=== PATIENT | female | born 1945 | race Caucasian/White ===

== ENCOUNTER 2018-06-03 11:37 | Emergency (ER) | payer OTHER, MEDICARE ==
[2018-06-03 11:51] VITALS: TEMP 98.6; BMI 28.0
--- NOTE | 2018-06-03 12:47 | PDOC ---
History of Present Illness - General Chief Complaint: Muscle Cramping Stated Complaint: ABDOMINAL PAIN Time Seen by Provider: 06/03/18 12:26 History Source: Patient - History of Present Illness Occurred: reports: other Lower Extremity Pain Location: bilateral: other (LE) Past History - Past Medical History Allergies/Adverse Reactions: Allergies Allergy/AdvReac Type Severity Reaction Status Date / Time No Known Allergies Allergy Verified 06/03/18 11:51 Home Medications: Ambulatory Orders Bimatoprost [Lumigan] 1 drop OU HS 06/22/14 Fluoxetine HCl [Prozac] 20 mg PO DAILY 06/22/14 Hctz 25Mg/Triamterene [Dyazide 25/37.5 -] 1 cap PO DAILY 06/22/14 Meclizine HCl [Antivert -] 25 mg PO TID PRN #21 tablet 06/22/14 Mag Hydrox/Al Hydrox/Simeth [Mylanta *Suspension*] 30 ml PO Q6H PRN 06/03/18 Naproxen 500 mg PO BID #20 tablet 06/03/18 Pantoprazole Sodium [Protonix -] 40 mg PO DAILY 06/03/18 Cancer: Yes (ENDOMETRIAL) COPD: No HTN: Yes Hypercholesterolemia: Yes Psychiatric Problems: Yes (anxiety) Other medical history: low potassium - Suicide/Smoking/Psychosocial Hx Smoking History: Never smoked Have you smoked in the past 12 months: No Hx Alcohol Use: No Drug/Substance Use Hx: No Substance Use Type: None Review of Systems - Review of Systems Constitutional: No: Chills, Fever Respiratory: No: Shortness of Breath Cardiac (ROS): No: Chest Pain, Lightheadedness, Palpitations *Physical Exam - Vital Signs Last Vital Signs Temp Pulse Resp BP Pulse Ox 98.6 F 71 18 131/69 100 06/03/18 11:48 06/03/18 11:48 06/03/18 11:48 06/03/18 11:48 06/03/18 11:48 - Physical Exam General Appearance: Yes: Appropriately Dressed. No: Apparent Distress HEENT: positive: Normal Voice Neck: positive: Supple Respiratory/Chest: negative: Respiratory Distress Cardiovascular: positive: Regular Rate, S1, S2 Extremity: positive: Normal Inspection, Tender, Other (pedal pulses intact b/ll , no skin changes or varicosities). negative: Pedal Edema, Swelling, Calf Tenderness Integumentary: positive: Dry, Warm Neurologic: positive: Fully Oriented, Alert, Normal Mood/Affect ED Treatment Course - LABORATORY CBC & Chemistry Diagram: 06/03/18 12:51 06/03/18 12:51 Medical Decision Making - Medical Decision Making 06/03/18 12:42 72-year-old female, history of hypertension, hyperlipidemia, gallstone, gastric ulcer, here with bilateral lower extremity pain. Patient states she developed severe cramping pain that starts in her feet and radiates all the way up to her groin, kept her from sleeping last night. Has not taken anything for pain. Has had similar pain in the past but was not this severe. No obvious inciting factors and no risk factors for DVT, PE. Denies SOB, CP or palpitations. Pt states she is concerned her potassium is low, as was told her potassium was low several weeks ago after coming to ED with epigastric pain. Of note, potassium was 3.2 then. No known history of kidney disease per patient See exam B/l LE cramping No trauma Exam unremarkable -labs check electrolytes -pain control in ED 06/03/18 13:27 Potassium 3.3 on labs. Doubt such a mild increase in potassium would cause such severe cramps, however dose of 40 mg potassium given along with IV Tylenol and fluids. Will reassess 06/03/18 15:37 Rest of labs wnl, US neg for b/l DVT. On reassessment, patient states pain is mostly in her right groin at this time. States pain worse with movement of right hip. Denies any recent injury. No tenderness, swelling, or evidence of hernia on exam. Patient able to bear weight. Pain in right groin possibly arthritis. No indication for x-ray or any other imaging at this time. Will give dose of toradol and anticipate discharging with pain control and having patient follow up with her PMD this week *DC/Admit/Observation/Transfer Diagnosis at time of Disposition: Leg cramps - Discharge Dispostion Disposition: HOME Condition at time of disposition: Improved - Prescriptions Prescriptions: Naproxen 500 mg PO BID #20 tablet - Referrals Referrals: David Kelley MD [Primary Care Provider] - - Patient Instructions Printed Discharge Instructions: DI for Leg Pain Additional Instructions: The cause of your leg pain is unclear at this time. Your potassium was 3.3, mildly decreased from normal, which is 3.5. You were given dose of potassium here Take medications as prescribed for pain and follow-up with your PMD this week - Post Discharge Activity
[2018-06-03] MEDS ORDERED: ACETAMINOPHEN 1000 MG/100 ML VIAL (NON FORMULARY) IVPB ONE (12:48)
[2018-06-03] MEDS ORDERED: SODIUM CHLORIDE 1,000 ML IV STA (12:48)
--- NOTE | 2018-06-03 12:50 | PDOC ---
*Physical Exam - Vital Signs Last Vital Signs Temp Pulse Resp BP Pulse Ox 98.6 F 71 18 131/69 100 06/03/18 11:48 06/03/18 11:48 06/03/18 11:48 06/03/18 11:48 06/03/18 11:48 Medical Decision Making - Medical Decision Making 06/03/18 12:48 Vital Signs Temp Pulse Resp BP Pulse Ox 98.6 F 71 18 131/69 100 06/03/18 11:48 06/03/18 11:48 06/03/18 11:48 06/03/18 11:48 06/03/18 11:48 Case discussed with the physician medical record assistant, CIRA Leiva. I agree with the plan. *DC/Admit/Observation/Transfer - Referrals Referrals: David Kelley MD [Primary Care Provider] - - Patient Instructions - Post Discharge Activity
[2018-06-03 13:01] LABS: BASO % 0.9 % (0-2.0); EOS % 3.2 % (0-4.5); HEMATOCRIT 39.1 % (32.4-45.2); HEMOGLOBIN 13.2 GM/dL (10.7-15.3); LYMPH % 23.5 % (8-40); MCH 29.5 pg (25.7-33.7); MCHC 33.7 g/dl (32.0-36.0); MEAN CELL VOLUME 87.4 fl (80-96); MEAN PLT VOLUME 7.6 fl (7.5-11.1); MONO % 8.3 % (3.8-10.2); NEUT % 64.1 % (42.8-82.8); PLATELET COUNT 227 K/MM3 (134-434); RBC 4.47 M/mm3 (3.60-5.2); RDW 12.3 % (11.6-15.6); WHITE BLOOD COUNT 6.2 K/mm3 (4.0-10.0)
[2018-06-03] MEDS ORDERED: ACETAMINOPHEN INJECTION 100 ML IVPB ONE (13:18)
[2018-06-03 13:26] LABS: ALBUMIN 3.8 g/dl (3.4-5.0); ALK PHOS 72 U/L (45-117); ANION GAP 9 MMOL/L (8-16); BILIRUBIN,TOTAL 0.4 mg/dL (0.2-1); BLOOD UREA NITROGEN 23 mg/dL (7-18); CALCIUM 9.2 mg/dL (8.5-10.1); CHLORIDE 102 mmol/L (98-107); CO2 28 mmol/L (21-32); CREATININE 0.8 mg/dL (0.55-1.3); GLUCOSE,RANDOM 89 mg/dL (74-106); MAGNESIUM 1.8 mg/dL (1.8-2.4); POTASSIUM 3.3 mmol/L (3.5-5.1); SGOT/AST 32 U/L (15-37); SGPT/ALT 28 U/L (13-61); SODIUM 139 mmol/L (136-145); TOT PROT 7.4 g/dl (6.4-8.2)
[2018-06-03] MEDS ORDERED: POTASSIUM CHLORIDE TABS 20 MEQ TABLET.ER (FP) PO ONE ×2 (13:27→13:33)
[2018-06-03 15:19] LABS: URINE APPEARANCE CLEAR; URINE BILIRUBIN NEGATIVE (<2.0 mg/dL); URINE COLOR STRAW; URINE GLUCOSE (UA) NEGATIVE (NEGATIVE); URINE KETONE NEGATIVE (NEGATIVE); URINE LEUK ESTERASE NEGATIVE (NEGATIVE); URINE NITRITE NEGATIVE (NEGATIVE); URINE PROTEIN NEGATIVE (NEGATIVE); URINE UROBILINOGEN NEGATIVE mg/dL (0.2-1.0)
[2018-06-03 15:22] LABS: EPI CELLS RARE /HPF (FEW)
[2018-06-03] MEDS ORDERED: KETOROLAC TROMETHAMINE 30 MG/1 ML VIAL IVPUSH ONE (15:36)
[2018-06-03] MEDS ORDERED: KETOROLAC TROMETHAMINE 30 MG/1 ML VIAL ONE (15:46)
[2018-06-03 16:15] VITALS: BP 111/54; PULSE 54
== END 2018-06-03 16:15 | disposition home or self-care (01) ==
LOC: JER 11:37
PROC: 3E033NZ Introduction of Analgesics, Hypnotics, Sedatives into Peripheral Vein, Percutaneous Approach (ICD-10-PCS; principal; 2018-06-03)
PROC: 3E0333Z Introduction of Anti-inflammatory into Peripheral Vein, Percutaneous Approach (ICD-10-PCS; 2018-06-03)
DX: R25.2 Cramp and spasm (principal); E87.6 Hypokalemia; I10 Essential (primary) hypertension; Z87.19 Personal history of other diseases of the digestive system; Z85.89 Personal history of malignant neoplasm of other organs and systems
CPT/HCPCS: 36415; 80053; 81003; 81015; 83735; 85025; 93970-TC; 96374; 96375; 99282-25; J0131; J7030

== ENCOUNTER 2018-06-27 16:43 | Emergency (ER) | payer OTHER, MEDICARE ==
[2018-06-27 16:51] VITALS: BP 139/73; TEMP 97.7; BMI 28.0
--- NOTE | 2018-06-27 16:54 | PDOC ---
Rapid Medical Evaluation Chief Complaint: Chest Pain Time Seen by Provider: 06/27/18 16:52 Medical Evaluation: Allergies Allergy/AdvReac Type Severity Reaction Status Date / Time No Known Allergies Allergy Verified 06/03/18 11:51 Vital Signs Temp Pulse Resp BP Pulse Ox 97.7 F 65 16 139/73 97 06/27/18 16:47 06/27/18 16:47 06/27/18 16:47 06/27/18 16:47 06/27/18 16:47 06/27/18 16:53 I have performed a brief in-person evaluation of this patient. The patient presents with a chief complaint of: epigastric pain since awaking Pertinent physical exam findings: Lungs CTAB. RRR. No m/r/g. I have ordered the following: labs, urine, CXR, EKG The patient will proceed to the ED for further evaluation. Discharge Disposition - Diagnosis Epigastric pain - Referrals - Patient Instructions - Post Discharge Activity
[2018-06-27 17:53] VITALS: PULSE 62
[2018-06-27 17:56] LABS: BASO % 0.3 % (0-2.0); EOS % 0.5 % (0-4.5); HEMATOCRIT 40.9 % (32.4-45.2); HEMOGLOBIN 13.7 GM/dL (10.7-15.3); LYMPH % 12.9 % (8-40); MCH 29.2 pg (25.7-33.7); MCHC 33.4 g/dl (32.0-36.0); MEAN CELL VOLUME 87.4 fl (80-96); MEAN PLT VOLUME 8.1 fl (7.5-11.1); MONO % 6.3 % (3.8-10.2); PLATELET COUNT 259 K/MM3 (134-434); RBC 4.68 M/mm3 (3.60-5.2); RDW 12.7 % (11.6-15.6); WHITE BLOOD COUNT 9.1 K/mm3 (4.0-10.0)
--- NOTE | 2018-06-27 18:04 | PDOC ---
History of Present Illness - General Chief Complaint: Chest Pain Stated Complaint: CHEST PAIN, ABD PAIN Time Seen by Provider: 06/27/18 16:52 - History of Present Illness Initial Comments: 06/27/18 18:03 Ms. Sevilla is a 72 yo female w/ pmh of HTN, HLD, gallstones, gastric ulcer, rheumatoid arthritis with recent flare for which she started prednisone yesterday (5mg) and recent elevated ESR at outside hospital who presents for 1 day history of upper abdominal pain. Patient called her assistant principal who recommended she take zantac and pepcid. Patient did this however decided to present to ER when pain did not go away. She currently feels nauseated at this time. The patient denies chest pain, shortness of breath, headache and dizziness. Denies fever, chills, vomit, diarrhea and constipation. Denies dysuria, frequency, urgency and hematuria. Allergies: NKDA Past History - Past Medical History Allergies/Adverse Reactions: Allergies Allergy/AdvReac Type Severity Reaction Status Date / Time No Known Allergies Allergy Verified 06/03/18 11:51 Home Medications: Ambulatory Orders Bimatoprost [Lumigan] 1 drop OU HS 06/22/14 Fluoxetine HCl [Prozac] 20 mg PO DAILY 06/22/14 Hctz 25Mg/Triamterene [Dyazide 25/37.5 -] 1 cap PO DAILY 06/22/14 Meclizine HCl [Antivert -] 25 mg PO TID PRN #21 tablet 06/22/14 Mag Hydrox/Al Hydrox/Simeth [Mylanta *Suspension*] 30 ml PO Q6H PRN 06/03/18 Naproxen 500 mg PO BID #20 tablet 06/03/18 Pantoprazole Sodium [Protonix -] 40 mg PO DAILY 06/03/18 Cancer: Yes (ENDOMETRIAL) COPD: No CHF: No GI Disorders: Yes (GB stones, ulcer) HTN: Yes Hypercholesterolemia: Yes Psychiatric Problems: Yes (anxiety) Other medical history: ARTHRITIS, GASTRIC ULCER - Immunization History Immunization Up to Date: No - Suicide/Smoking/Psychosocial Hx Smoking History: Never smoked Have you smoked in the past 12 months: No Information on smoking cessation initiated: No Hx Alcohol Use: No Drug/Substance Use Hx: No Substance Use Type: None Review of Systems - Review of Systems Comments:: 06/27/18 18:38 GENERAL/CONSTITUTIONAL: No fever or chills. No weakness. HEAD, EYES, EARS, NOSE AND THROAT: No change in vision. No ear pain or discharge. No sore throat. CARDIOVASCULAR: No chest pain or shortness of breath RESPIRATORY: No cough, wheezing, or hemoptysis. GASTROINTESTINAL: +Nausea w/ midline adbominal pain; constant. No vomiting, diarrhea or constipation. GENITOURINARY: No dysuria, frequency, or change in urination. MUSCULOSKELETAL: No joint or muscle swelling or pain. No neck or back pain. SKIN: No rash NEUROLOGIC: No headache, vertigo, loss of consciousness, or change in strength/ sensation. ENDOCRINE: No increased thirst. No abnormal weight change HEMATOLOGIC/LYMPHATIC: No anemia, easy bleeding, or history of blood clots. ALLERGIC/IMMUNOLOGIC: No hives or skin allergy. *Physical Exam - Vital Signs Last Vital Signs Temp Pulse Resp BP Pulse Ox 97.7 F 62 16 139/73 95 06/27/18 16:47 06/27/18 17:52 06/27/18 16:47 06/27/18 16:47 06/27/18 17:52 - Physical Exam Comments: 06/27/18 18:38 GENERAL: Awake, alert, and fully oriented, in no acute distress HEAD: No signs of trauma, normocephalic, atraumatic EYES: PERRLA, EOMI, sclera anicteric, conjunctiva clear ENT: Auricles normal inspection, hearing grossly normal, nares patent, oropharynx clear without exudates. Moist mucosa NECK: Normal ROM, supple, no lymphadenopathy, JVD, or masses LUNGS: No distress, speaks full sentences, clear to auscultation bilaterally HEART: Regular rate and rhythm, normal S1 and S2, no murmurs, rubs or gallops, peripheral pulses normal and equal bilaterally. ABDOMEN: +Midline epigastric TTP. Soft, normoactive bowel sounds. No guarding, no rebound. No masses EXTREMITIES: Normal inspection, Normal range of motion, no edema. No clubbing or cyanosis. NEUROLOGICAL: Cranial nerves II through XII grossly intact. Normal speech, normal gait, no focal sensorimotor deficits SKIN: Warm, Dry, normal turgor, no rashes or lesions noted. ED Treatment Course - LABORATORY CBC & Chemistry Diagram: 06/27/18 17:41 06/27/18 17:41 - ADDITIONAL ORDERS Additional order review: 06/27/18 17:41 RBC 4.68 MCV 87.4 MCHC 33.4 RDW 12.7 MPV 8.1 Neutrophils % 80.0 D Lymphocytes % 12.9 D Monocytes % 6.3 Eosinophils % 0.5 D Basophils % 0.3 Medical Decision Making - Medical Decision Making 06/27/18 18:39 Ms. Sevilla is a 72 yo female w/ pmh as described who presents for evaluation of epigastric pain consistent w/ patient's gastric ulcer pain. Labs drawn for evaluation with EKG / XR for r/o cardiac process or gastric rupture. GI cocktail given. Patient currently pending workup. 06/27/18 19:10 Patient signed out to Dr. Lemon for further evaluation. *DC/Admit/Observation/Transfer Diagnosis at time of Disposition: Epigastric pain - Referrals - Patient Instructions - Post Discharge Activity
--- NOTE | 2018-06-27 18:32 | PDOC ---
Attending Attestation - HPI HPI: 06/27/18 18:34 The patient is a 72 year old female, with a significant past medical history of HTN, HLD, gallstones, gastric ulcer, rheumatoid arthritis who presents to the emergency department for 1 day of upper abdominal pain for which she reportedly took zantac and protonix today. The patient denies chest pain, shortness of breath, headache and dizziness. The patient denies fever, chills, nausea, vomit, diarrhea and constipation. The patient denies dysuria, frequency, urgency and hematuria. Allergies: NKDA - Physicial Exam PE: 06/27/18 18:34 Constitutional: Awake, alert, oriented. No acute distress. Head: Normocephalic. Atraumatic Eyes: PERRL. EOMI. Conjunctivae are not pale. ENT: Mucous membranes are moist and intact. Posterior pharynx without exudates or erythema. Uvula midline. Neck: Supple. Full ROM. No lymphadenopathy. Cardiovascular: Regular rate. Regular rhythm. S1, S2 regular. Distal pulses are 2+ and symmetric. Pulmonary/Chest: No evidence of respiratory distress. Clear to auscultation bilaterally No wheezing, rales or rhonchi. Abdominal: (+) epigastric tenderness on palpation. Soft and non-distended. No rebound, guarding or rigidity. No organomegaly. No palpable masses. Good bowel sounds. Back: No CVA tenderness. Musculoskeletal: No edema. No cyanosis. No clubbing. Full range of motion in all extremities. Nocalf tenderness. Radial/pedal pulses are intact and 2+ bilaterally Skin: Skin is warm and dry. No petechiae. No purpura. Neurological: Alert and oriented to person, place, and time. Cranial nerves II- XII are grossly intact. Normal speech. Strength is grossly symmetric. No sensory deficits. Psychiatric: Good eye contact. Normal interaction, affect and behavior. - Medical Decision Making 06/27/18 18:35 Documentation prepared by Jaycee Jaime, acting as director medical economics for Jazmin Burks DO <Jayece Jaime - Last Filed: 06/27/18 19:49> - Resident Resident Name: Hussein Ashford - ED Attending Attestation I have performed the following: I have examined & evaluated the patient, The case was reviewed & discussed with the resident, I agree w/resident's findings & plan, Exceptions are as noted - Medical Decision Making 06/27/18 18:32 I, Dr. Jazmin Burks, DO, attest that this document has been prepared under my direction and personally reviewed by me in its entirety. I further attest, that it accurately reflects all work, treatment, procedures and medical decision -making performed by me. 06/27/18 19:30 a/p: 72 you female with epigastric pain - assoc nausea, no vomiting started prednisone yesterday for an RA flair. States after taking the prednisone today developed acute onset of epigastric pain -hx of gastritis -suspect steroid induced gastritis -also taking otc potassium and magnesium that she ordered online -states she took zantac and protonix earlier today without improvement in pain -no cp/sob -will send labs, ekg, cxr, trop, lipase -will medicate and re-eval 06/27/18 19:35 potassium and mag low - will replace 06/27/18 22:00 pt feeling much better stable for d/c to home will give carafate for steroid induced gastritis <Jazmin Burks - Last Filed: 06/27/18 22:00> Heart Score/ECG Review - ECG Intrepretation Comment:: 06/27/18 19:36 sinus at 63, 1st degree av block, L axis, q waves septally, no acute st/t wave findings <Jazmin Burks - Last Filed: 06/27/18 22:00>
[2018-06-27] MEDS ORDERED: LIDOCAINE VISCOUS 2% ORAL/TOP 20 ML UNIT-DOSE CUP MM ONE (18:33)
[2018-06-27] MEDS ORDERED: MAG HYDROX/AL HYDROX/SIMETH 30 ML UNIT-DOSE CUP PO ONE (18:34)
[2018-06-27] MEDS ORDERED: LIDOCAINE VISCOUS 2% ORAL/TOP 20 ML UNIT-DOSE CUP ONE (19:11)
[2018-06-27] MEDS ORDERED: MAG HYDROX/AL HYDROX/SIMETH 30 ML UNIT-DOSE CUP ONE (19:11)
[2018-06-27 19:14] LABS: ALBUMIN 4.2 g/dl (3.4-5.0); ALK PHOS 95 U/L (45-117); ANION GAP 9 MMOL/L (8-16); BLOOD UREA NITROGEN 22 mg/dL (7-18); CALCIUM 9.3 mg/dL (8.5-10.1); CHLORIDE 105 mmol/L (98-107); CO2 26 mmol/L (21-32); CREATININE 0.8 mg/dL (0.55-1.3); GLUCOSE,RANDOM 98 mg/dL (74-106); MAGNESIUM 1.7 mg/dL (1.8-2.4); POTASSIUM 3.3 mmol/L (3.5-5.1); SGOT/AST 104 U/L (15-37); SGPT/ALT 59 U/L (13-61); SODIUM 140 mmol/L (136-145); TOT PROT 7.9 g/dl (6.4-8.2)
[2018-06-27] MEDS ORDERED: ONDANSETRON 4 MG/2 ML VIAL IVPUSH ONE (19:17)
--- NOTE | 2018-06-27 19:17 | PDOC ---
*Physical Exam - Vital Signs Last Vital Signs Temp Pulse Resp BP Pulse Ox 97.7 F 62 16 139/73 95 06/27/18 16:47 06/27/18 17:52 06/27/18 16:47 06/27/18 16:47 06/27/18 17:52 ED Treatment Course - LABORATORY CBC & Chemistry Diagram: 06/27/18 17:41 06/27/18 17:41 - ADDITIONAL ORDERS Additional order review: Laboratory Results 06/27/18 17:41 Sodium 140 Potassium 3.3 L Chloride 105 Carbon Dioxide 26 Anion Gap 9 BUN 22 H Creatinine 0.8 Creat Clearance w eGFR > 60 Random Glucose 98 Calcium 9.3 Magnesium 1.7 L Total Bilirubin 1.0 AST 104 H ALT 59 Alkaline Phosphatase 95 Creatine Kinase 107 Troponin I < 0.02 Total Protein 7.9 Albumin 4.2 06/27/18 17:41 RBC 4.68 MCV 87.4 MCHC 33.4 RDW 12.7 MPV 8.1 Neutrophils % 80.0 D Lymphocytes % 12.9 D Monocytes % 6.3 Eosinophils % 0.5 D Basophils % 0.3 Medical Decision Making - Medical Decision Making I have assumed care of the patient from Dr. Ashford, who has discussed the clinical presentation, work-up, and ED course thus far. I have reviewed the patients medical record and ED course and agree with all aspects of care thus far. Plan for discharge home pending labs and XR Hypokalmeia to 3.3, at patient's baseline (3.2-3.3) -Will replace with 40mg PO -Will also give 1g of Mg 06/27/18 19:16 Carafate 1g PO once for gastritis v PUD 06/27/18 19:35 Coags wnl Lipase wnl Patient pending XRs 06/27/18 21:48 Rx for Carafate 1g PO daily Plain films w/o abn Discharge instructions and return precautions given Plan for D/C w/ PCP f/u Plan discussed w/ patient who is in agreement and verbalized understanding Dispo: Home *DC/Admit/Observation/Transfer Diagnosis at time of Disposition: Epigastric pain, PUD (peptic ulcer disease) - Discharge Dispostion Disposition: HOME Condition at time of disposition: Improved Decision to Admit order: No - Prescriptions Prescriptions: Sucralfate [Carafate -] 1 gm PO DAILY 10 Days #10 tablet - Referrals - Patient Instructions Printed Discharge Instructions: DI for Peptic Ulcer Additional Instructions: You were seen today in the Emergency Room for epigastric abdominal pain. Please review the handouts provided at discharge. Please follow up with your primary care provider within 1-3 days. Return to the Emergency Room if you develop vomiting, worsening pain, chest pain, inability to tolerate food, worsening symptoms, or any new/concerning symptoms. - Post Discharge Activity
[2018-06-27] MEDS ORDERED: ONDANSETRON 4 MG/2 ML VIAL ONE (19:18)
[2018-06-27] MEDS ORDERED: SUCRALFATE 1 GM/10 ML UNIT DOSE CUPS PO ONE (19:29)
[2018-06-27] MEDS ORDERED: MAGNESIUM SULF 50% (8.12 MEQ/2 ML-1 GM VIAL) IVPB ONE (19:29)
[2018-06-27] MEDS ORDERED: POTASSIUM CHLORIDE ORAL LIQUID 20 MEQ/15 ML PO ONE (19:29)
[2018-06-27] MEDS ORDERED: SUCRALFATE 1 GM TABLET (FP) ONE (19:38)
[2018-06-27] MEDS ORDERED: MAGNESIUM 1GM/D5W - 1 GM/100 ML IVPB IVPB ONE (19:39)
[2018-06-27] MEDS ORDERED: POTASSIUM CHLORIDE ORAL LIQUID 20 MEQ/15 ML ONE (19:39)
[2018-06-27 21:27] LABS: INR 1.03 (0.83-1.09); PROTHROMBIN TIME (PATIENT) 12.2 SEC (9.7-13.0)
--- NOTE | 2018-06-28 12:17 | EKG ---
Test Reason : Blood Pressure : / mmHG Vent. Rate : 063 BPM Atrial Rate : 063 BPM P-R Int : 212 ms QRS Dur : 086 ms QT Int : 424 ms P-R-T Axes : 070 -55 034 degrees QTc Int : 433 ms SINUS RHYTHM WITH 1ST DEGREE A-V BLOCK LEFT AXIS DEVIATION SEPTAL INFARCT (CITED ON OR BEFORE 19-APR-2018) ABNORMAL ECG WHEN COMPARED WITH ECG OF 19-APR-2018 19:27, QUESTIONABLE CHANGE IN INITIAL FORCES OF SEPTAL LEADS Confirmed by JOSE EDUARDO READ MD ([id number]) on 06/28/2018 12:17:25 PM Referred By: Confirmed By:JOSE EDUARDO READ MD
== END 2018-06-27 22:23 | disposition home or self-care (01) ==
LOC: JER 16:43
PROC: 3E033GC Introduction of Other Therapeutic Substance into Peripheral Vein, Percutaneous Approach (ICD-10-PCS; principal; 2018-06-27)
DX: R10.13 Epigastric pain (principal); I10 Essential (primary) hypertension; E78.5 Hyperlipidemia, unspecified; M06.9 Rheumatoid arthritis, unspecified; Z85.89 Personal history of malignant neoplasm of other organs and systems; F41.9 Anxiety disorder, unspecified
CPT/HCPCS: 36415; 71046-TC-FY; 74018-TC-FY; 80053; 82550; 83690; 83735; 84484; 85025; 85610; 93005; 93010; 99283-25

== ENCOUNTER 2019-02-20 11:46 | Inpatient (IN) | payer OTHER, MEDICARE ==
[2019-02-20 11:59] VITALS: BMI 27.4
--- NOTE | 2019-02-20 13:06 | PDOC ---
History of Present Illness - General Chief Complaint: Lightheaded Stated Complaint: DIZZINESS Time Seen by Provider: 02/20/19 13:06 - History of Present Illness Initial Comments: 02/20/19 13:27 PCP: Dr. Kelley Patient is a 73 year old female was brought in to the ED from [facility] after she passed out while the tech was performing an Ultrasound of thyroid. As per the patient, she was apparently well this morning, ate breakfast (oatmeal, banana and coffee), came to [facility], felt very dizzy while they were doing the ultrasound of the neck and passed out. When patient woke up, she had severe headache, felt weak, tired, dizzy and bowel incontinence. Patient reports she passed out last year at home but doesn't remember the details. Denies numbness, tingling sensation, no focal neurological deficits, chest pain , shortness of breath, cough, fever, chills, rigors, sweating. Bladder habit normal. Sleep/appetite normal prior to this event. Patient went to her PCP's office yesterday and was asked to do the thryoid ultrasound today. She says she had her blood work yesterday at the docs office. Also has headache on/off since the past week, located erik on the left temporal area, that shoots down to her left side of the face, gets numbing sensation, lasting about a minute and goes away without any medications. While talking to her, patients started crying and reported that she has been taking care of her 79 year old at home who has alzheimers. Due to her anxiety has been taking xanax since 3 months. Past Medical history: HTN, HLD, Gastric ulcer, RA not on immunosuppressants now Allergies: NKDA Past Surgical history: None Social: Lives at home Smoking: Denies Alcohol:Denies Drugs:Denies Family hx: Non contributory. Past History - Past Medical History Allergies/Adverse Reactions: Allergies Allergy/AdvReac Type Severity Reaction Status Date / Time No Known Allergies Allergy Verified 02/20/19 12:20 Home Medications: Ambulatory Orders Bimatoprost [Lumigan] 1 drop OU HS 06/22/14 Fluoxetine HCl [Prozac] 20 mg PO DAILY 06/22/14 Hctz 25Mg/Triamterene [Dyazide 25/37.5 -] 1 cap PO DAILY 06/22/14 Alprazolam [Xanax] 0.25 mg PO DAILY 02/20/19 Rosuvastatin Calcium [Crestor] 20 mg PO DAILY 02/20/19 Amlodipine Besylate [Norvasc -] 5 mg PO DAILY tablet 02/21/19 Cancer: Yes (ENDOMETRIAL) COPD: No CHF: No GI Disorders: Yes (GB stones, ulcer) HTN: Yes Hypercholesterolemia: Yes Psychiatric Problems: Yes (anxiety) - Immunization History Immunization Up to Date: No - Suicide/Smoking/Psychosocial Hx Smoking History: Never smoked Have you smoked in the past 12 months: No Information on smoking cessation initiated: No Hx Alcohol Use: No Drug/Substance Use Hx: No Substance Use Type: None Review of Systems - Review of Systems Able to Perform ROS?: Yes Is the patient limited Arabic proficient: No *Physical Exam - Vital Signs Last Vital Signs Temp Pulse Resp BP Pulse Ox 98.5 F 59 L 16 147/68 98 02/20/19 11:55 02/20/19 11:55 02/20/19 11:55 02/20/19 11:55 02/20/19 12:28 - Physical Exam Comments: 02/20/19 13:36 General: Elderly female lying in bed comfortably, awake, alert, oriented x 3, in no acute distress HEENT: EOM intact, no pallor or icterus Chest: B/L Lungs clear, no added sounds CVS: Regular rate rhythm, S1, S2, no murmurs Abdomen: Soft, non tender, no organomegaly, BS + Ext: No peripheral edema Neuro: No facial droop. ED Treatment Course - LABORATORY CBC & Chemistry Diagram: 02/20/19 13:52 02/20/19 13:52 Medical Decision Making - Medical Decision Making 02/20/19 13:38 Patient is a 73 year old female presented to the ED after she passed out while they were performing an ultrasound of the neck today at [facility]. --Will send CBC, CMP, Trops, UA, EKG --Head CT without contrast. --1L of NS and reassess. 02/20/19 14:[address] Kelley. Recommends neurology consult. Dr. Richter consult requested. 02/20/19 14:53 Labs unremarkable. EKG Sinus bradycardia. Head CT pending. 02/20/19 16:[address] negative. Case discussed with Dr. Kelley who accepts the patient to admit for syncope work up. *DC/Admit/Observation/Transfer Diagnosis at time of Disposition: Dizziness - Discharge Dispostion Disposition: HOME Condition at time of disposition: Stable - Referrals - Patient Instructions - Post Discharge Activity
[2019-02-20] MEDS ORDERED: SODIUM CHLORIDE 1,000 ML IV STA (13:24)
--- NOTE | 2019-02-20 14:09 | PDOC ---
Documentation entered by Jayshree Biggs SCRIBE, acting as scribe for José Miguel Holliday MD. José Miguel Holliday MD: This documentation has been prepared by the latoniaibe, Jayshree Biggs SCRIBE, under my direction and personally reviewed by me in its entirety. I confirm that the documentation accurately reflects all work, treatment, procedures, and medical decision making performed by me. Attending Attestation - Resident Resident Name: Erika Roblero - ED Attending Attestation I have performed the following: I have examined & evaluated the patient, The case was reviewed & discussed with the resident, I agree w/resident's findings & plan, Exceptions are as noted - HPI HPI: 02/20/19 13:54 The patient is a 73-year-old female, with a past medical history of HTN, HLD, Gastric ulcer, RA (not on immunosuppressants), anxiety, who presents to the ED s /p syncopal episode today. The patient was lying down and having a thyroid US when she suddenly became dizzy and passed out. Denies any head trauma. The patient is now complaining of severe headache, weakness, fatigue, and dizziness. She reports that she was in her usual state of health this morning and had breakfast. During the syncopal episode, pt had bowel incontinence. No seizure-like activity was witnessed. The patient denies fevers, chills, nausea, vomiting, diarrhea, or abdominal pain. Denies any chest pain, palpitations or shortness of breath. Denies numbness of tingling. Allergies: NKA Social History: None reported. Surgical History: None reported. PCP: Dr. Warren Hernandez - Physicial Exam PE: 02/20/19 13:56 GENERAL: Awake, alert, and fully oriented, in no acute distress. HEAD: No signs of trauma EYES: PERRLA, EOMI, sclera anicteric, conjunctiva clear ENT: Auricles normal inspection, hearing grossly normal, nares patent, oropharynx clear without exudates. Moist mucosa NECK: Nontender, no stepoffs, Normal ROM, supple, no lymphadenopathy, JVD, or masses LUNGS: Breath sounds equal, clear to auscultation bilaterally. No wheezes, and no crackles HEART: Regular rate and rhythm, normal S1 and S2, no murmurs, rubs or gallops ABDOMEN: Soft, nontender, normoactive bowel sounds. No guarding, no rebound. No masses EXTREMITIES: Normal range of motion, no edema. No clubbing or cyanosis. No cords, erythema, or tenderness NEUROLOGICAL: Cranial nerves II through XII intact. 5/5 strength and sensation in all extremities, Normal speech, normal cerebellar function SKIN: Warm, Dry, normal turgor, no rashes or lesions noted. - Medical Decision Making 02/20/19 14:09 73 F with syncopal episode while lying flat for thyroid US. EKG sinus jody and CT prolongation but no sign of arrhythmia. - Labs, trop - CT head - IVF - Admit tele
[2019-02-20 14:19] LABS: HEMATOCRIT 39.3 % (32.4-45.2); HEMOGLOBIN 13.2 GM/dL (10.7-15.3); MCH 29.8 pg (25.7-33.7); MCHC 33.6 g/dl (32.0-36.0); MEAN CELL VOLUME 88.6 fl (80-96); MEAN PLT VOLUME 8.3 fl (7.5-11.1); PLATELET COUNT 213 K/MM3 (134-434); RBC 4.44 M/mm3 (3.60-5.2); RDW 12.5 % (11.6-15.6); WHITE BLOOD COUNT 7.7 K/mm3 (4.0-10.0)
[2019-02-20 14:35] LABS: EPI CELLS 0.6 /HPF (0-5/HPF); HYALINE CASTS 0 /lpf (0-8); URINE APPEARANCE CLEAR; URINE BACTERIA 1.5 /hpf (NEGATIVE); URINE BILIRUBIN NEGATIVE (NEGATIVE); URINE COLOR YELLOW; URINE GLUCOSE (UA) NEGATIVE (NEGATIVE); URINE KETONE NEGATIVE (NEGATIVE); URINE LEUK ESTERASE NEGATIVE (NEGATIVE); URINE NITRITE NEGATIVE (NEGATIVE); URINE PROTEIN NEGATIVE (NEGATIVE); URINE RBC 3 /hpf (0-4); URINE UROBILINOGEN 0.2 mg/dL (0.2-1.0); URINE WBC 1 /hpf (0-5)
--- NOTE | 2019-02-20 14:36 | CON.NEURO ---
Consult Consult Specialty:: Neelam Referred by:: ER - History of Present Illness History of Present Illness: 73 years old woman with syncopy history of the present illness This is 73-year-old right-handed female patient with history of coronary artery disease, osteoarthritis, hypertension, rheumatoid arthritis questionable and an anxiety presented to the hospital from the ultrasound Department patient was seen at the primary care office yesterday was found to have a thyroid mass questionable patient was instructed to go to the hospital for thyroid ultrasound. During the thyroid ultrasound patient did not feel well patient had a syncopal episode patient felt that she is sick to her stomach with mild nausea no vomiting no seizure-like activity patient was brought into the emergency room was awake no intervention was needed to put the patient back to normal sensorium patient was alert awake oriented 3 the whole episode lasted less than a minute. In the emergency room patient was very anxious regarding her who suffer from Alzheimer's disease and his home by himself. Patient wanted to leave the house. Patient had a CAT scan of the head revealed no evidence of acute pathology I review the CAT scan myself. - History Source History Provided By: Patient Limitations to Obtaining History: No Limitations - Alcohol/Substance Use Hx Alcohol Use: No - Smoking History Smoking history: Never smoked Have you smoked in the past 12 months: No Home Medications - Allergies Allergies/Adverse Reactions: Allergies Allergy/AdvReac Type Severity Reaction Status Date / Time No Known Allergies Allergy Verified 02/20/19 12:20 - Home Medications Home Medications: Ambulatory Orders Bimatoprost [Lumigan] 1 drop OU HS 06/22/14 Fluoxetine HCl [Prozac] 20 mg PO DAILY 06/22/14 Hctz 25Mg/Triamterene [Dyazide 25/37.5 -] 1 cap PO DAILY 06/22/14 Alprazolam [Xanax] 0.25 mg PO DAILY 02/20/19 Rosuvastatin Calcium [Crestor] 20 mg PO DAILY 02/20/19 Family Disease History - Family Disease History Family History: Denies (sz) Review of Systems - Review of Systems Constitutional: reports: No Symptoms Eyes: reports: No Symptoms HENT: reports: No Symptoms Neurological: reports: Headache, Incoordination, Numbness, Parasthesia Physical Exam-Neuro Vital Signs: Vital Signs Temperature 98.5 F 02/20/19 11:55 Pulse Rate 59 L 02/20/19 11:55 Respiratory Rate 16 02/20/19 11:55 Blood Pressure 147/68 02/20/19 11:55 O2 Sat by Pulse Oximetry (%) 98 02/20/19 12:28 Constitutional: Yes: Well Nourished Neck: Yes: WNL Cardiovascular: Yes: WNL - Neuro Exam Level Of Consciousness: Yes: Oriented to Person, Oriented to Place, Oriented to Time Speech: WNL Dominant Hand: Right Cranial Nerves II-XII Intact: Yes Gag: Present DTR's: 1+ Left Bicep, 1+ Right Bicep, 1+ Right Tricep, 1+ Left Brachioradialis Response to light touch: Normal Response to pain prick: Normal Response to temperature: Normal Motor Strength: 4/5: Left Arm, Right Arm, Left Leg, Right Leg Gait: Deferred Imaging - Results Cat Scan: Image Reviewed Problem List - Problems (1) Dizziness Assessment/Plan: most probably vasovagal syncope Gross neurological examination with no evidence for acute pathology Neurologically patient is intact to go home Patient will need MRI of the brain with no contrast Patient will need carotid Doppler as an outpatient Start baby aspirin 1 daily Code(s): R42 - DIZZINESS AND GIDDINESS
[2019-02-20 14:41] LABS: ALBUMIN 4.4 g/dl (3.4-5.0); BILIRUBIN,TOTAL 0.4 mg/dL (0.2-1); BLOOD UREA NITROGEN 19.5 mg/dL (7-18); CALCIUM 9.4 mg/dL (8.5-10.1); CREATININE 0.8 mg/dL (0.55-1.3); POTASSIUM 3.7 mmol/L (3.5-5.1); TOT PROT 7.6 g/dl (6.4-8.2)
--- NOTE | 2019-02-20 19:36 | HP ---
DATE OF ADMISSION: 02/20/2019 This is a 73-year-old female, well-known to me, diagnosed to have hypertension, anxiety disorder, depression. Patient came to the hospital today for ultrasound of the thyroid. While the patient was doing the procedure, she passed out and she was brought to the ER. In the ER, she woke up and she knew everything. While she was out, she had a bowel movement too. In the past, no similar episodes. At this moment, the patient is awake, alert, oriented, and not in distress. She wanted to go home. PHYSICAL EXAMINATION: Vital Signs: Blood pressure 134/70, pulse 56 and regular, temperature 98. HEENT: Unremarkable. Neck: Supple. No JVD. Lungs: Clear. Heart: S1, S2 normal. No S3, S4. Abdomen: Soft. Extremities: Legs have no edema. Neurologic: Grossly normal. LABORATORY: WBC 7.5, hemoglobin 13.2, platelets 213. Chemistry: Electrolytes are normal. CPK not elevated. Troponin is 92. Thyroid: TSH 3.2. CT of the head is negative. IMPRESSION: 1. Syncope, etiology not clear. 2. Hypertension. 3. Anxiety and depression. PLAN: Neurology consultation. Admit for observation. Will continue her present medications. STARR BEGUM M.D. [id number]
[2019-02-20] MEDS ORDERED: ALPRAZolam 0.25 MG TABLET PO SCH (22:00)
[2019-02-20] MEDS ORDERED: ALPRAZolam 0.25 MG TABLET ONE (22:20)
--- NOTE | 2019-02-21 09:24 | DS ---
Physical Examination Vital Signs: Vital Signs Temperature 97.1 F L 02/21/19 06:46 Pulse Rate 62 02/21/19 06:46 Respiratory Rate 18 02/20/19 19:35 Blood Pressure 127/55 L 02/21/19 06:46 O2 Sat by Pulse Oximetry (%) 97 02/21/19 06:46 Findings/Remarks: Admitted after a vasovagal episode Evaluated by neuro,OK to be discharged Constitutional: Yes: Well Nourished Eyes: Yes: WNL HENT: Yes: WNL Neck: Yes: WNL Cardiovascular: Yes: WNL Respiratory: Yes: WNL Gastrointestinal: Yes: WNL ...Rectal Exam: Yes: Deferred Renal/: Yes: WNL Breast(s): Yes: WNL Musculoskeletal: Yes: WNL Extremities: Yes: WNL Edema: No Peripheral Pulses WNL: Yes Integumentary: Yes: WNL Neurological: Yes: Alert, Oriented ...Motor Strength: WNL Psychiatric: Yes: Alert Labs: CBC, BMP 02/20/19 13:52 02/20/19 13:52 Discharge Summary Reason For Visit: DIZZINESS Condition: Stable - Instructions - Home Medications Comprehensive Discharge Medication List: Ambulatory Orders Bimatoprost [Lumigan] 1 drop OU HS 06/22/14 Fluoxetine HCl [Prozac] 20 mg PO DAILY 06/22/14 Hctz 25Mg/Triamterene [Dyazide 25/37.5 -] 1 cap PO DAILY 06/22/14 Alprazolam [Xanax] 0.25 mg PO DAILY 02/20/19 Rosuvastatin Calcium [Crestor] 20 mg PO DAILY 02/20/19
[2019-02-21 09:33] VITALS: BP 120/64; PULSE 57; TEMP 98.1
[2019-02-21] MEDS ORDERED: amLODIPine BESYLATE 5 MG TABLET (FP) PO SCH (10:00)
--- NOTE | 2019-02-21 16:31 | EKG ---
Test Reason : Blood Pressure : / mmHG Vent. Rate : 059 BPM Atrial Rate : 059 BPM P-R Int : 228 ms QRS Dur : 096 ms QT Int : 432 ms P-R-T Axes : 063 -49 020 degrees QTc Int : 427 ms SINUS BRADYCARDIA WITH 1ST DEGREE A-V BLOCK LEFT AXIS DEVIATION LOW VOLTAGE QRS SEPTAL INFARCT (CITED ON OR BEFORE 19-APR-2018) ABNORMAL ECG WHEN COMPARED WITH ECG OF 27-JUN-2018 16:43, NO SIGNIFICANT CHANGE WAS FOUND Confirmed by JOSE EDUARDO READ MD ([id number]) on 02/21/2019 4:30:46 PM Referred By: Confirmed By:JOSE EDUARDO READ MD
== END 2019-02-21 09:55 | disposition home or self-care (01) | DRG 312 ==
LOC: JER 11:46 → JERBED 16:09
PROVIDERS: ADMIT Internal Medicine; ATTEND Internal Medicine
DX: R55 Syncope and collapse (principal); R42 Dizziness and giddiness; I10 Essential (primary) hypertension; E78.5 Hyperlipidemia, unspecified; M06.9 Rheumatoid arthritis, unspecified; Z85.42 Personal history of malignant neoplasm of other parts of uterus; F41.9 Anxiety disorder, unspecified; I25.10 Atherosclerotic heart disease of native coronary artery without angina pectoris; Z87.11 Personal history of peptic ulcer disease
CPT/HCPCS: 36415; 70450-TC; 76536-TC; 80053; 81003; 82550; 84443; 84484; 85027; 93005; 93010; 99285-25; J7030